=== PATIENT | male | born 1995 | race Caucasian/White ===

== ENCOUNTER 2020-06-18 10:15 | Emergency (ER) | payer BC, OTHER ==
[~2020-06-18] VITALS: Ht 180.3 cm; Wt 70.3 kg
[2020-06-18 10:19] VITALS: BP 126/74
[2020-06-18] MEDS ORDERED: NOHOMEMEDICATIONS (10:27)
== END 2020-06-18 12:07 | disposition home or self-care (01) ==
LOC: ER 10:15
DX: R20.2 Paresthesia of skin (principal); F15.10 Other stimulant abuse, uncomplicated; F17.210 Nicotine dependence, cigarettes, uncomplicated

== ENCOUNTER 2020-06-18 21:13 | Emergency (ER) | payer BC, OTHER ==
[~2020-06-18 21:13] MED LIST: NOHOMEMEDICATIONS
[2020-06-18 22:52] VITALS: BP 128/78
== END 2020-06-18 22:53 | disposition home or self-care (01) ==
LOC: ER 21:13
DX: M79.10 Myalgia, unspecified site (principal); R22.43 Localized swelling, mass and lump, lower limb, bilateral; F17.210 Nicotine dependence, cigarettes, uncomplicated

== ENCOUNTER 2020-06-20 02:31 | Emergency (ER) | payer BC, OTHER ==
[~2020-06-20] VITALS: Ht 180.3 cm; Wt 69.8 kg
[2020-06-20 04:31] VITALS: BP 151/97
--- NOTE | 2020-06-20 09:30 | EKG ---
[facility] [place] [address] ELECTROCARDIOGRAM REPORT Name: LEO MAHAN Room #: [facility]#: [id number] Admission: 06/20/20 Attend Phys: Discharge: 06/20/20 Date of : [birth year] Report #: [id number] THIS REPORT FOR: cc: [facility] - Clinic physician unknown [facility] - Clinic physician unknown Nikhil Ortega MD [facility] ~ THIS REPORT FOR: //name// [facility] ED Test Date: 2020-06-20 Test Time: 02:58:40 Pat Name: LEO MAHAN Department: Room: Gender: M 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1995 Requested By: Marquez Everett Order Number: [id number] MD: Nikhil Ortega Measurements Intervals [place] Rate: 92 P: 71 AK: 149 QRS: 72 QRSD: 92 T: 37 QT: 358 QTc: 443 Interpretive Statements Sinus rhythm Borderline Q waves in inferior leads Artifact in lead(s) I,II,aVR,aVF No previous ECG available for comparison Electronically Signed On 06-20-2020 9:29:54 [employer]OD[employer] 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
== END 2020-06-20 04:32 | disposition home or self-care (01) ==
LOC: ER 02:31
DX: J02.9 Acute pharyngitis, unspecified (principal); F17.210 Nicotine dependence, cigarettes, uncomplicated

== ENCOUNTER 2020-06-21 16:30 | Emergency (ER) | payer BC, OTHER ==
[~2020-06-21] VITALS: Ht 180.3 cm; Wt 70.3 kg
[2020-06-21 17:17] LABS: ABSOLUTE NEUTROPHILS 8.1 thou/uL (1.4-8.2); BASOPHILS 0.7 % (0.0-2.0); EOSINOPHILS 0.5 % (0.0-3.0); HEMOGLOBIN 12.2 gm/dL (14.0-18.0); LYMPHOCYTES 14.7 % (24.0-44.0); MCH 30.7 pg (26.0-34.0); MONOCYTES 10.6 % (1.0-8.0); PLATELET COUNT 242 thou/uL (150-400); POLYS 73.5 % (36.0-66.0); RBC 3.98 mil/uL (4.50-6.00); RDW 12.8 % (10.5-14.5)
[2020-06-21 17:24] LABS: CALCIUM 9.6 mg/dL (8.5-10.1); CREATININE 1.1 mg/dL (0.7-1.3); POTASSIUM 3.4 mmol/L (3.5-5.1)
[2020-06-21 17:31] LABS: ALBUMIN 4.6 g/dL (3.4-5.0); TOTAL BILIRUBIN 1.2 mg/dL (0.2-1.0); TOTAL PROTEIN 7.3 g/dL (6.4-8.2)
--- NOTE | 2020-06-21 17:33 | EKG ---
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1995 Requested By: Percy Carvalho Order Number: [id number] MD: Nikhil Ortega Measurements Intervals [place] Rate: 121 P: 76 IN: 147 QRS: 80 QRSD: 85 T: 57 QT: 319 QTc: 453 Interpretive Statements Sinus tachycardia Artifact in lead(s) I,II,aVR,aVL,aVF,V3,V4,V5,V6 Compared to ECG 06/20/2020 02:58:40 Sinus rhythm no longer present Electronically Signed On 06-21-2020 17:33: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
[2020-06-21 18:10] VITALS: BP 116/76
== END 2020-06-21 18:10 | disposition home or self-care (01) ==
LOC: ER 16:30
PROVIDERS: Physician Assistant
DX: F15.10 Other stimulant abuse, uncomplicated (principal); F41.9 Anxiety disorder, unspecified; F17.210 Nicotine dependence, cigarettes, uncomplicated

== ENCOUNTER → 2020-06-28 | Emergency (ER) | payer BC, OTHER ==
[~2020-06-28] VITALS: Ht 180.3 cm; Wt 70.3 kg
[2020-06-28 16:51] VITALS: BP 147/82
== END ==
LOC: ER 16:48
DX: L03.114 Cellulitis of left upper limb (principal); F15.10 Other stimulant abuse, uncomplicated; F17.210 Nicotine dependence, cigarettes, uncomplicated

== ENCOUNTER 2020-06-29 00:01 | Emergency (ER) | payer BC, OTHER | END 2020-06-29 00:04 | disposition left against medical advice (07) | LOC: ER 00:01 | DX: Z00.00 Encounter for general adult medical examination without abnormal findings (principal); Z53.21 Procedure and treatment not carried out due to patient leaving prior to being seen by health care provider ==

== ENCOUNTER 2020-07-17 09:48 | Emergency (ER) | payer OTHER ==
[~2020-07-17] VITALS: Ht 180.3 cm; Wt 59.0 kg
[2020-07-17 11:47] LABS: HEMOGLOBIN 12.5 gm/dL (14.0-18.0); MCH 30.7 pg (26.0-34.0); MCHC 33.9 g/dL (28.0-37.0); MCV 90.6 fL (80.0-100.0); RBC 4.09 mil/uL (4.50-6.00); RDW 13.3 % (10.5-14.5); WBC 8.8 thou/uL (4.0-11.0)
[2020-07-17 12:26] LABS: CALCIUM 9.1 mg/dL (8.5-10.1); CREATININE 0.6 mg/dL (0.7-1.3); POTASSIUM 3.3 mmol/L (3.5-5.1)
[2020-07-17 12:38] LABS: ALBUMIN 4.1 g/dL (3.4-5.0); TOTAL BILIRUBIN 0.8 mg/dL (0.2-1.0); TOTAL PROTEIN 7.2 g/dL (6.4-8.2)
[2020-07-17] MEDS ORDERED: CLOTRIMAZOLE AF1535 TOP (12:56)
[2020-07-17 13:03] VITALS: BP 121/80
== END 2020-07-17 13:06 | disposition home or self-care (01) ==
LOC: ER 09:48
PROVIDERS: Physician Assistant
DX: F15.10 Other stimulant abuse, uncomplicated (principal); M79.671 Pain in right foot; M79.672 Pain in left foot; L29.9 Pruritus, unspecified; F17.210 Nicotine dependence, cigarettes, uncomplicated

== ENCOUNTER 2021-01-25 12:05 | Emergency (ER) | payer OTHER ==
[~2021-01-25] VITALS: Ht 180.3 cm; Wt 64.9 kg
[~2021-01-25 12:05] MED LIST changes: +CLOTRIMAZOLE AF1535 TOP
[2021-01-25 12:54] LABS: ABSOLUTE NEUTROPHILS 3.3 thou/uL (1.4-8.2); BASOPHILS 0.5 % (0.0-2.0); EOSINOPHILS 3.4 % (0.0-3.0); HEMATOCRIT 40.9 % (42.0-52.0); HEMOGLOBIN 14.3 gm/dL (14.0-18.0); LYMPHOCYTES 33.5 % (24.0-44.0); MCH 31.1 pg (26.0-34.0); MCV 88.8 fL (80.0-100.0); MONOCYTES 10.8 % (1.0-8.0); PLATELET COUNT 290 thou/uL (150-400); POLYS 51.8 % (36.0-66.0); RBC 4.61 mil/uL (4.50-6.00); RDW 12.7 % (10.5-14.5); WBC 6.3 thou/uL (4.0-11.0)
[2021-01-25 13:11] LABS: ANION GAP 10 mmol/L (7-16); BUN 11 mg/dL (7-18); CALCIUM 8.8 mg/dL (8.5-10.1); CHLORIDE 105 mmol/L (98-107); CO2 28 mmol/L (21-32); CREATININE 0.8 mg/dL (0.7-1.3); GLUCOSE 131 mg/dL (74-106); POTASSIUM 3.5 mmol/L (3.5-5.1); SODIUM 143 mmol/L (136-145)
[2021-01-25 13:18] LABS: SALICYLATE < 2.8 mg/dL (2.8-20.0); SGOT 25 U/L (15-37); SGPT 30 U/L (16-63); TOTAL BILIRUBIN 0.4 mg/dL (0.2-1.0); TOTAL PROTEIN 7.4 g/dL (6.4-8.2)
[2021-01-25 14:18] VITALS: BP 125/83
== END 2021-01-25 14:19 ==
LOC: ER 12:05
PROVIDERS: Emergency Medicine
DX: I80.9 Phlebitis and thrombophlebitis of unspecified site (principal); Z20.822 Contact with and (suspected) exposure to COVID-19